=== PATIENT | male | born 1945 | race Caucasian/White ===

== ENCOUNTER 2020-03-26 18:46 | Inpatient (IN) | payer MEDICARE, OTHER, SELFPAY ==
[2020-03-26 19:30] VITALS: BP 115/77; PULSE 57; RESP 12; TEMP 36.3; O2SAT 95; BMI 28.1
--- NOTE | 2020-03-26 19:53 | CTR_ITS ---
PROCEDURE INFORMATION: Exam: CT Head Without Contrast Exam date and time: 03/26/2020 8:18 PM Age: 74 years old Clinical indication: Injury or trauma; Fall; Blunt trauma (contusions or hematomas); Patient HX: Trampled by a cow. Multiple bruises and abrasions to head and face. C/O of chest and rib pain. History of old rib fracture. TECHNIQUE: Imaging protocol: Computed tomography of the head without contrast. Radiation optimization: All CT scans at this facility use at least one of these dose optimization techniques: automated exposure control; mA and/or kV adjustment per patient size (includes targeted exams where dose is matched to clinical indication); or iterative reconstruction. COMPARISON: No relevant prior studies available. RADIATION DOSE METRICS: Total DLP (mGy-cm): 866.42 FINDINGS: Brain: Mild parenchymal volume loss noted. There is decreased attenuation of the periventricular white matter, consistent with mild chronic microangiopathic white matter disease. No intracranial hemorrhage noted. No parenchymal edema identified. Cerebral ventricles: No ventriculomegaly. Bones/joints: Unremarkable. No acute fracture. Paranasal sinuses: Visualized sinuses are unremarkable. No fluid levels. Mastoid air cells: Unremarkable as visualized. No mastoid effusion. Soft tissues: Bilateral frontal soft tissue swelling, left worse than right. CT/CT head wo con* [id number] IMPRESSION: 1. No acute intracranial abnormality demonstrated. 2. Bilateral frontal soft tissue swelling, left worse than right. No associated fracture. Radiation Dose CTDIVOL = (mGy): DLP = 866.42 (mGy-cm)
--- NOTE | 2020-03-26 19:53 | CTR_ITS ---
PROCEDURE INFORMATION: Exam: CT Maxillofacial Without Contrast Exam date and time: 03/26/2020 8:18 PM Age: 74 years old Clinical indication: Injury or trauma; Fall; Blunt trauma (contusions or hematomas); Forehead and nose and orbit/periorbital; Bilateral; Prior surgery; Surgery type: Mandible; Patient HX: Trampled by a cow. Multiple bruises and abrasions to head and face. C/O of chest and rib pain. History of old rib fracture. ; Additional info: Cow hoof to face. TECHNIQUE: Imaging protocol: Computed tomography images of the face without contrast. Radiation optimization: All CT scans at this facility use at least one of these dose optimization techniques: automated exposure control; mA and/or kV adjustment per patient size (includes targeted exams where dose is matched to clinical indication); or iterative reconstruction. COMPARISON: No relevant prior studies available. RADIATION DOSE METRICS: Total DLP (mGy-cm): 724.12 FINDINGS: Orbital cavity: The orbits are intact. Bones/joints: Postop change of the right side of the mandible. The nasal bones appear intact. The zygomatic arches are intact. The mandible is intact. No fracture of the pterygoid plates. Paranasal sinuses: No air-fluid levels are seen in the paranasal sinuses. Soft tissues: Soft tissue edema seen in the left periorbital/left pre maxillary areas. Mild right frontal scalp laceration. CT/CT facial bones wo con* [id number] IMPRESSION: 1. Soft tissue edema seen in the left periorbital/left pre maxillary areas. Mild right frontal scalp laceration. 2. No acute fracture demonstrated. Radiation Dose CTDIVOL = (mGy): DLP = 724.12 (mGy-cm)
--- NOTE | 2020-03-26 19:53 | XRR_ITS ---
PROCEDURE INFORMATION: Exam: XR Right Femur Exam date and time: 03/26/2020 8:29 PM Age: 74 years old Clinical indication: Injury or trauma; Fall; Blunt trauma; Thigh or upper leg; Right; Injury date: 03/26/20; Patient HX: Trauma - R leg pain - attacked by cow TECHNIQUE: Imaging protocol: XR Right femur. Views: 2 views. COMPARISON: No relevant prior studies available. FINDINGS: Bones/joints: No fracture or other acute osseous abnormality. Soft tissues: The soft tissues appear unremarkable. XR/XR femur RT min 2V* [id number] IMPRESSION: No acute fracture demonstrated.
--- NOTE | 2020-03-26 19:53 | CTR_ITS ---
PROCEDURE INFORMATION: Exam: CT Chest With Contrast; Diagnostic Exam date and time: 03/26/2020 8:18 PM Age: 74 years old Clinical indication: Injury or trauma; Fall; Generalized; Blunt trauma (contusions or hematomas); Prior surgery; Surgery type: Cabg. ; Patient HX: Trampled by a cow. Multiple bruises and abrasions to head and face. C/O of chest and rib pain. History of old rib fracture. ; Additional info: Multiple blunt trauma. Aorta? TECHNIQUE: Imaging protocol: Diagnostic computed tomography of the chest with contrast. Radiation optimization: All CT scans at this facility use at least one of these dose optimization techniques: automated exposure control; mA and/or kV adjustment per patient size (includes targeted exams where dose is matched to clinical indication); or iterative reconstruction. Contrast material: VISI 320; Contrast volume: 75 ml; Contrast route: INTRAVENOUS (IV); COMPARISON: No relevant prior studies available. RADIATION DOSE METRICS: Total DLP (mGy-cm): 1500.05 FINDINGS: Lungs: Mild dependent atelectasis in the lungs. Additional atelectasis noted adjacent to the right rib fractures. Pleural spaces: Trace right pleural effusion/hemothorax. 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 No cardiomegaly demonstrated. No pericardial effusion. Aorta: Aneurysmal dilatation of the ascending aorta which measures 4.0 cm in transverse diameter. Mild atherosclerosis of the aorta. No acute injury. Lymph nodes: No pathologically enlarged lymph nodes are demonstrated. Bones/joints: Median sternotomy noted. Acute fractures of the right 3rd through 8th ribs. Postop change of the bilateral shoulders. Acute nondisplaced fractures of the left anterolateral 4th and 5th ribs. Soft tissues: The soft tissues appear unremarkable. IMPRESSION: 1. Acute fractures of the right 3rd through 8th ribs. No associated right pneumothorax. Trace right hemothorax. 2. Acute nondisplaced fractures of the left anterolateral 4th and 5th ribs. No associated pneumothorax. 3. Mild bilateral atelectasis. No acute infiltrates. PROCEDURE INFORMATION: Exam: CT Abdomen And Pelvis With Contrast Exam date and time: 03/26/2020 8:18 PM Age: 74 years old Clinical indication: Injury or trauma; Fall; Generalized; Blunt trauma (contusions or hematomas); Prior surgery; Surgery type: Cabg. ; Patient HX: Trampled by a cow. Multiple bruises and abrasions to head and face. C/O of chest and rib pain. History of old rib fracture. ; Additional info: Multiple blunt trauma. Aorta? TECHNIQUE: Imaging protocol: Computed tomography of the abdomen and pelvis with contrast. Radiation optimization: All CT scans at this facility use at least one of these dose optimization techniques: automated exposure control; mA and/or kV adjustment per patient size (includes targeted exams where dose is matched to clinical indication); or iterative reconstruction. Contrast material: VISI 320; Contrast volume: 75 ml; Contrast route: INTRAVENOUS (IV); COMPARISON: No relevant prior studies available. RADIATION DOSE METRICS: Total DLP (mGy-cm): 60883.05 FINDINGS: Lungs: Please see accompanying CT chest report from same date. Liver: 3 mm cyst in the inferior portion of the liver. No acute liver injury. Gallbladder and bile ducts: Multiple gallstones in the gallbladder. No cholecystitis. No biliary dilatation. Pancreas: The pancreas is normal in appearance. No pancreatic duct dilatation. Spleen: Calcified granulomas are noted in the spleen. Adrenal glands: The adrenal glands appear within normal limits. Kidneys and ureters: Parapelvic renal cysts. Simple appearing 2 cm left cortical cyst. No acute renal injury. No hydronephrosis. Stomach and bowel: No acute gastric abnormality demonstrated. The small bowel is unremarkable as demonstrated. Diverticulosis of the colon; no acute diverticulitis. Appendix: No evidence of appendicitis. Intraperitoneal space: No free air. No significant fluid collection. Vasculature: Atherosclerosis of the abdominal aorta which measures up to 2.3 cm in diameter. No acute abnormality. Lymph nodes: No pathologically enlarged lymph nodes are demonstrated. Urinary bladder: The urinary bladder is unremarkable in appearance. Reproductive: No acute abnormality. Bones/joints: Bilateral L5 spondylolysis, associated with grade 1 L5-S1 spondylolisthesis and advanced L5-S1 disc degeneration. Soft tissues: The soft tissues appear unremarkable. CT/CT chest abd pel w con* IMPRESSION: 1. Diverticulosis of the colon; no acute bowel abnormality. 2. No acute abnormality demonstrated of the solid organs. 3. No acute abnormality demonstrated in the abdomen and pelvis. COMMENTS: Consistent with the [employer]'s Incidental Findings Committee white paper (J Am Ranulfo Radiol 2018): Any incidental renal lesion less than 1 cm or classified as too small to characterize, or any incidental cystic renal lesion characterized as simple-appearing, is likely benign. No follow-up imaging is recommended for these lesions per consensus recommendations based on imaging criteria. Radiation Dose CTDIVOL = (mGy): DLP = 1500.05~47555.05 (mGy-cm)
--- NOTE | 2020-03-26 19:53 | XRR_ITS ---
PROCEDURE INFORMATION: Exam: XR Right Knee Exam date and time: 03/26/2020 8:29 PM Age: 74 years old Clinical indication: Knee; Right; Prior surgery; Patient HX: Trauma - R leg pain - attacked by cow; Additional info: Fall TECHNIQUE: Imaging protocol: XR Right knee. Views: 3 views. COMPARISON: No relevant prior studies available. FINDINGS: Bones/joints: No joint narrowing, dislocation, or effusion noted. No fracture or other acute osseous abnormality. Soft tissues: Surgical clips in the medial soft tissues. XR/XR knee RT 3V* [id number] IMPRESSION: No acute abnormality demonstrated.
--- NOTE | 2020-03-26 19:53 | CTR_ITS ---
PROCEDURE INFORMATION: Exam: CT Cervical Spine Without Contrast Exam date and time: 03/26/2020 8:18 PM Age: 74 years old Clinical indication: Injury or trauma; Fall; Blunt trauma; Patient HX: Trampled by a cow. Multiple bruises and abrasions to head and face. C/O of chest and rib pain. History of old rib fracture. TECHNIQUE: Imaging protocol: Computed tomography images of the cervical spine without contrast. Radiation optimization: All CT scans at this facility use at least one of these dose optimization techniques: automated exposure control; mA and/or kV adjustment per patient size (includes targeted exams where dose is matched to clinical indication); or iterative reconstruction. COMPARISON: No relevant prior studies available. RADIATION DOSE METRICS: Total DLP (mGy-cm): 671.12 FINDINGS: Vertebrae: No acute fracture. Normal alignment. The cervical spine demonstrates moderate degenerative changes at multiple levels. Soft tissues: Unremarkable. Lungs: Lung apices are normal. CT/CT cervical spin wo con* [id number] IMPRESSION: No acute findings. Radiation Dose CTDIVOL = (mGy): DLP = 671.12 (mGy-cm)
--- NOTE | 2020-03-26 20:14 | ECG_ITS ---
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 Measurements Intervals [place] Rate: 66 P: 27 AK: 188 QRS: 24 QRSD: 86 T: 84 QT: 388 QTc: 406 Interpretive Statements SINUS RHYTHM NONSPECIFIC T-WAVE ABNORMALITY No previous ECG available for comparison Electronically Signed On 03-27-2020 19:21:17 CHEMIST PROTEINS by Brad Dudley M.D. [id number]
[2020-03-26] MEDS: sodium chloride 0.9% 1,000 ML 999 ML IV (20:47)
[2020-03-26] MEDS: morphine 4 mg/mL SDV 1 mL 2 MG IVP (20:47)
[2020-03-26 20:57] LABS: Basophils # 0.1 10^3/uL (0.0-0.1); Basophils % 0.3 %; Eosinophils # 0.1 10^3/uL (0.0-0.8); Eosinophils % 0.2 %; Hemoglobin 14.8 g/dL (11.7-16.6); Lymphocytes # 1.3 10^3/uL (0.8-4.8); Lymphocytes % 6.2 %; Mean Corpuscular HGB Conc 32.9 g/dL (30.0-36.0); Mean Corpuscular Hemoglobin 30.4 pg (28.0-34.0); Mean Corpuscular Volume 92.4 fL (80-94); Mean Platelet Volume 10.8 fL (7.4-10.4); Monocytes # 0.9 10^3/uL (0.2-0.9); Monocytes % 4.5 %; Neutrophils # 18.12 10^3/uL (1.8-7.7); Neutrophils % 88.2 %; Nucleated Red Blood Cells % 0 %; Platelet Count 290 10^3/cmm (130-400); Red Blood Count 4.87 10^6/uL (4.1-5.3); Red Cell Distribution Width 13.4 % (12.1-15.1); White Blood Count 20.6 10^3/uL (4.0-10.0)
--- NOTE | 2020-03-26 21:04 | CTR_ITS ---
PROCEDURE INFORMATION: Exam: CT Angiography Head With Contrast Exam date and time: 03/26/2020 9:08 PM Age: 74 years old Clinical indication: Injury or trauma; Fall; Blunt trauma; Head and neck; Prior surgery; Surgery type: Cabg; Patient HX: Trampled by a cow. Multiple bruises and abrasions to head and face. C/O of chest and rib pain. History of old rib fracture. ; Additional info: Head/neck trauma TECHNIQUE: Imaging protocol: Computed tomography angiography of the head with intravenous contrast. 3D rendering (Not supervised by radiologist): MIP and/or 3D reconstructed images were created by the technologist. Radiation optimization: All CT scans at this facility use at least one of these dose optimization techniques: automated exposure control; mA and/or kV adjustment per patient size (includes targeted exams where dose is matched to clinical indication); or iterative reconstruction. Contrast material: VISI 320; Contrast volume: 75 ml; Contrast route: INTRAVENOUS (IV); COMPARISON: CT head wo con* [id number] 03/26/2020 9:29 PM RADIATION DOSE METRICS: Total DLP (mGy-cm): 2287.56 FINDINGS: ANTERIOR CIRCULATION: Right internal carotid artery: Unremarkable. Intracranial segment is patent with no significant stenosis. No aneurysm. Right middle cerebral artery: Unremarkable. No occlusion or significant stenosis. No aneurysm. Right anterior cerebral artery: Unremarkable. No occlusion or significant stenosis. No aneurysm. Left internal carotid artery: Unremarkable. Intracranial segment is patent with no significant stenosis. No aneurysm. Left middle cerebral artery: Unremarkable. No occlusion or significant stenosis. No aneurysm. Left anterior cerebral artery: Unremarkable. No occlusion or significant stenosis. No aneurysm. POSTERIOR CIRCULATION: Right vertebral artery: Unremarkable. No occlusion or significant stenosis. No aneurysm. Left vertebral artery: Unremarkable. No occlusion or significant stenosis. No aneurysm. Basilar artery: Unremarkable CT angiogram head. No intracranial arterial abnormality. Right posterior cerebral artery: Unremarkable. No occlusion or significant stenosis. No aneurysm. Left posterior cerebral artery: Unremarkable. No occlusion or significant stenosis. No aneurysm. Brain: No definite mass, mass effect, or midline shift. Cerebral ventricles: No ventriculomegaly. Bones/joints: Unremarkable. No acute fracture. Soft tissues: Small right frontal scalp hematoma. Other findings: The impression: IMPRESSION: PROCEDURE INFORMATION: Exam: CT Angiography Neck With Contrast Exam date and time: 03/26/2020 9:08 PM Age: 74 years old Clinical indication: Injury or trauma; Fall; Blunt trauma; Head and neck; Prior surgery; Surgery type: Cabg; Patient HX: Trampled by a cow. Multiple bruises and abrasions to head and face. C/O of chest and rib pain. History of old rib fracture. ; Additional info: Head/neck trauma TECHNIQUE: Imaging protocol: Computed tomography angiography of the neck with intravenous contrast. 3D rendering (Not supervised by radiologist): MIP and/or 3D reconstructed images were created by the technologist. Radiation optimization: All CT scans at this facility use at least one of these dose optimization techniques: automated exposure control; mA and/or kV adjustment per patient size (includes targeted exams where dose is matched to clinical indication); or iterative reconstruction. Contrast material: VISI 320; Contrast volume: 75 ml; Contrast route: INTRAVENOUS (IV); COMPARISON: CT head wo con* [id number] 03/26/2020 9:29 PM RADIATION DOSE METRICS: Total DLP (mGy-cm): 2287.56 FINDINGS: Right common carotid artery: No stenosis. No dissection or occlusion. Right internal carotid artery: No stenosis of the extracranial segment. No dissection or occlusion. Right external carotid artery: No occlusion or stenosis of the origin. Right vertebral artery: No stenosis. No dissection or occlusion. Left common carotid artery: No stenosis. No dissection or occlusion. Left internal carotid artery: No stenosis of the extracranial segment. No dissection or occlusion. Left external carotid artery: No occlusion or stenosis of the origin. Left vertebral artery: No stenosis. No dissection or occlusion. Bones/joints: No cervical spine fracture. Cervical spine alignment unremarkable. Moderate spondyloarthropathy. Displaced fractures in the posterior aspect of right 3rd and 4th ribs, incompletely assessed. Soft tissues: Normal. No significant soft tissue swelling. Lungs: Moderate emphysema. CT/CT angio headneck* [id number] IMPRESSION: 1. Unremarkable CT angiogram neck. No acute arterial injury. No significant underlying atherosclerotic disease. 2. Overlapping, displaced fracture in the posterior aspect of the right-side 3rd and 4th ribs which are incompletely assessed by this examination. REFERENCES: NASCET CRITERIA. The degree of internal carotid artery stenosis is based on NASCET criteria. Normal is no stenosis. Mild is less than 50% stenosis. Moderate is 50-69% stenosis. Severe is 70% to 99% stenosis. Total occlusion is no detectable patent lumen. Radiation Dose CTDIVOL = (mGy): DLP = 2287.56~2287.56 (mGy-cm)
[2020-03-26 21:05] LABS: INR 1.12 (0.8-1.2)
[2020-03-26 21:11] LABS: Lactate (Lactic Acid level) 2.1 mmol/L (0.5-2.2)
[2020-03-26 21:14] LABS: Alanine Aminotransferase 48 U/L (0-41); Albumin Level 4.4 g/dL (3.5-5.2); Alkaline Phosphatase 72 IU/L (40-130); Anion Gap 18.1 (5-19); Aspartate Amino Transferase 58 U/L (0-40); Blood Urea Nitrogen 17 mg/dL (8-23); Calcium 9.4 mg/dL (8.5-10.5); Carbon Dioxide 22 mmol/L (22-29); Chloride 101 mmol/L (98-107); Glucose 129 mg/dL (65-115); Osmolality Calculated 285 mOsm/kg (285-295); Potassium 5.1 mmol/L (3.5-5.1); Sodium 136 mmol/L (136-145); Total Bilirubin 0.7 mg/dL (0.15-1.2); Total Protein 7.4 g/dL (6.6-8.7)
[2020-03-26 21:15] LABS: Troponin(5th) Baseline 22 ng/L (0-15)
[2020-03-26] MEDS: iodixanol 320 mg/mL 100mL Btl IV ×2 (21:18)
--- NOTE | 2020-03-26 22:14 | ECG_ITS ---
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 Measurements Intervals [place] Rate: 71 P: 21 MI: 176 QRS: 24 QRSD: 94 T: 79 QT: 403 QTc: 440 Interpretive Statements SINUS RHYTHM NONSPECIFIC T-WAVE ABNORMALITY Compared to ECG 03/26/2020 20:40:20 No significant changes Electronically Signed On 03-27-2020 19:35:45 PROGRAMMING COORDINATOR by Brad Dudley M.D. [email or web address] [place]/store/OM/[id number]
[2020-03-26] MEDS: HYDROmorphone 1 mg/mL INJ 1 mL 0.5 MG IVP (22:22)
[2020-03-26 22:43] VITALS: BP 122/75; PULSE 70; RESP 17; O2SAT 95
[2020-03-26] MEDS: lidocaine 1% INJ 20 mL SUBCUT (22:45)
[2020-03-26 22:47] VITALS: BP 122/75; PULSE 75; RESP 18; O2SAT 95
--- NOTE | 2020-03-26 23:15 | ED_ITS ---
HPI - Trauma General: Chief Complaint: Trauma Stated Complaint: PT VS COW/FACIAL INJURIES, R LEG PAIN, RIB PAIN Time Seen by Provider: 03/26/20 19:48 History of Present Illness: HPI narrative: The patient is a 74-year-old male who was attacked by the mother of a calf while trying to tack the calf. He was knocked to the ground and stomped on by the cow several time. He has facial, head, rib injuries. He takes baby aspirin but no blood thinners. He also c omplains of right thigh pain posteriorly. He complains of pain with respirations. Satting 100% on room air. MD complaint: injury Loss of Consciousness: no Location: head, face, eyes, neck, chest, back, abdomen and other (Right thigh) Associated symptoms: Reports headache(s); Denies abdominal pain, back pain, chest pain, confusion or dizziness Review of Systems General: Reports: 10 or more systems reviewed and unremarkable except in HPI and below Const: Denies: fatigue Eyes: Reports: other (Black eye to the left side); Denies: change in vision, blurry vision or eye redness ENMT: Denies: throat pain, swelling of lips/tongue, ear or mastoid pain or nasal congestion Card: Denies: chest pain, palpitations, irregular heart rhythm, edema, dyspnea on exertion or orthopnea Resp: Reports: other (Tenderness to the chest wall bilaterally); Denies: dyspnea, productive cough or non-productive cough GI: Denies: abdominal pain, diarrhea or GI cramping : Denies: flank pain, urinary frequency or urinary urgency Musc: Denies: neck pain, back pain, extremity pain, joint pain, joint redness, limited range of motion or muscle weakness Skin/Breast: Reports: other (Laceration to left eyebrow extending to the lateral corner of the eye); Denies: rash, pruritus, erythema, skin pain or skin tenderness Neuro: Reports: headache(s); Denies: numbness in extremities, weakness in extremities, sensory changes, difficulty walking, dizziness, confusion or Slurred speech present Psych: Denies: anxiety or depression Endo: Denies: polyuria All/Imm: Denies: urticaria, throat swelling or tongue swelling Physical Exam Const: COMMON NORMALS: average body habitus, patient oriented x3, alert and well nourished GENERAL APPEARANCE: cooperative, well kempt, well developed and ill appearing ORIENTATION/CONSCIOUSNESS: Yes awake, Yes oriented to person, Yes oriented to place and Yes oriented to time HENMT: THROAT: posterior oropharynx normal OTHER: The patient has a black eye to the left side and a irregular Z shaped laceration to his left eyebrow and eyelid and lateral to his eye. That was repaired using 7 sutures with 1% lidocaine. The patient tolerated well. He has associated bony tenderness bilaterally over his forehead and eyebrows as well as his orbits. His vision is unaffected he is able to read fine print bilaterally with opposite eye covered. His right ear has an abrasion on the auricle. It has blood coming from his ear canal as well but inspection of the tympanic membrane is normal. There is no laceration in his ear canal. Most likely the blood flowed into his ear not from his ear. Eye: COMMON NORMALS: Equal, round and reactive pupils present and EOMs intact bilaterally GENERAL EYE: appearance normal, both eyes and all related structures PUPIL: Yes Equal, round and reactive pupils present Neck/C-Spine: COMMON NORMALS: full ROM, no lymphadenopathy, no meningeal signs and no JVD GENERAL: Yes normal visual inspection OTHER: Perimuscular cervical spinal tenderness. No step-offs. Lymph: LYMPHATIC: no lymphadenopathy noted Chest: COMMONS NORMALS: normal inspection of the chest OTHER: Bilateral rib tenderness laterally throughout the chest wall. He has some anterior chest wall tenderness as well. Resp: COMMON NORMALS: normal respiratory effort, No retractions, No use of accessory muscles, clear to auscultation bilaterally and percussion normal EFFORT & INSPECTION: Yes able to speak in complete sentences AUSCULTATION: clear to auscultation bilaterally PERCUSSION: percussion normal OTHER: Breath sounds are slightly reduced from pain. But clear. Cardio: COMMON NORMALS: no JVD, regular rate, regular rhythm, S1 normal heart sound present, S2 normal heart sound present and Peripheral pulses 2+ throughout RATE: regular rate RHYTHM: regular rhythm HEART SOUNDS: S1 normal heart sound present and S2 normal heart sound present PERIPHERAL PULSES: Peripheral pulses 2+ throughout GI: COMMON NORMALS: Soft to palpation PALPATION: Yes Soft to palpation OTHER: His abdomen is soft. He has mild tenderness in all quadrants and small read/bruises mostly in the upper abdomen. : COMMON NORMALS: Yes no CVA tenderness BLADDER/KIDNEY EXAM: Yes no CVA tenderness Back/Pelvis: COMMON NORMALS: no CVA tenderness, thoracic and lumbar spine normal to inspection, no thoracic nor lumbar tenderness and thoraco-lumbar ROM normal Extremity: COMMON NORMALS: normal to inspection, full ROM, capillary refill normal, no joint enlargement and no pedal edema NARRATIVE EXTREMITY EXAM: Right posterior thigh bruise and hematoma. Associated tenderness. Full range of motion. Ligaments intact. GENERAL: Yes normal exam except as noted Neuro: COMMON NORMALS: patient oriented x3, CN's II-XII intact bilaterally, moves all extremities, no focal motor deficits, no sensory deficits noted and gait normal SENSORIUM/ORIENTATION: Yes alert, Yes oriented to person, Yes oriented to place and Yes oriented to time MENINGEAL SIGNS: Yes no meningeal signs Psych: COMMON NORMALS: mental status grossly normal, Normal thought process present, cooperative, normal affect and speech normal APPEARANCE: Yes well kempt ATTITUDE: Yes calm SPEECH: Yes normal speech THOUGHT PROCESS: Normal thought process present Skin: COMMON NORMALS: no rashes or lesions noted NARRATIVE SKIN EXAM: Bruises and abrasions scattered throughout his body listed above. Worst are his head, face, ears, chest, belly GENERAL SKIN EXAM: no rashes or lesions noted Procedures Laceration Laceration 1: Site: face (left eye) Side (If applicable): left Size (cm): 6 Description: irregular ( Z shaped) Depth: simple, single layer Local Anesthetic: lidocaine 1% Amount of anesthesia used (mL): 3 Pre-repair: wound explored and irrigated extensively Skin layer closed with: other (ethilon) Size (cm): 5-0 Number of sutures: 7 Technique: simple, interrupted MDM - Trauma MDM Narrative: Medical decision making narrative: The patient came in severely beaten from a cow. He has a laceration to his left eyebrow which was repaired with 7 sutures. Remove in 7 to 10 days. He has a left black eye. There are no associated fractures with that. His most significant injuries are he has 8 rib fractures. On the right side he has 6 overlapping rib fractures ribs 3 through 8. On the left side he has fractured ribs 4 [address] Shipley who accepts as an inpatient and he is the primary. Dr. Dillard will consult upstairs Lab Data: Labs: Lab Results 02/02/0103/26/20 03/26/20 Range/Units 20:44 20:44 20:44 WBC 20.6 H (4.0-10.0) 10^3/ uL RBC 4.87 (4.1-5.3) 10^6/u L Hgb 14.8 (11.7-16.6) g/dL Hct 45.0 (42.0-52.0) % MCV 92.4 (80-94) fL MCH 30.4 (28.0-34.0) pg MCHC 32.9 (30.0-36.0) g/dL RDW 13.4 (12.1-15.1) % Plt Count 290 (130-400) 10^3/c mm MPV 10.8 H (7.4-10.4) fL Neut % (Auto) 88.2 % Lymph % (Auto) 6.2 % Harris % (Auto) 4.5 % Eos % (Auto) 0.2 % Baso % (Auto) 0.3 % Neut # (Auto) 18.12 H (1.8-7.7) 10^3/u L Lymph # (Auto) 1.3 (0.8-4.8) 10^3/u L Harris # (Auto) 0.9 (0.2-0.9) 10^3/u L Eos # (Auto) 0.1 (0.0-0.8) 10^3/u L Baso # (Auto) 0.1 (0.0-0.1) 10^3/u L Nucleated RBC % (a uto) 0 % Nucleated RBCs # 0.0 /100WBC PT 14.80 (12.1-14.9) SECO NDS INR 1.12 (0.8-1.2) Sodium 136 (136-145) mmol/L Potassium 5.1 (3.5-5.1) mmol/L Chloride 101 (98-107) mmol/L Carbon Dioxide 22 (22-29) mmol/L Anion Gap 18.1 (5-19) BUN 17 (8-23) mg/dL Creatinine 1.2 (0.7-1.2) mg/dL GFR Calculation Not Reportable Glucose 129 H (65-115) mg/dL Calculated Osmolal ity 285 (285-295) mOsm/k g Lactate (0.5-2.2) mmol/L Calcium 9.4 (8.5-10.5) mg/dL Total Bilirubin 0.7 (0.15-1.2) mg/dL AST 58 H (0-40) U/L ALT 48 H (0-41) U/L Alkaline Phosphata se 72 (40-130) IU/L Troponin T Baselin e (0-15) ng/L Total Protein 7.4 (6.6-8.7) g/dL Albumin 4.4 (3.5-5.2) g/dL Globulin 3.0 (1.3-4.6) g/dL 03/26/20 03/26/20 Range/Units 20:44 20:44 WBC (4.0-10.0) 10^3/ uL RBC (4.1-5.3) 10^6/u L Hgb (11.7-16.6) g/dL Hct (42.0-52.0) % MCV (80-94) fL MCH (28.0-34.0) pg MCHC (30.0-36.0) g/dL RDW (12.1-15.1) % Plt Count (130-400) 10^3/c mm MPV (7.4-10.4) fL Neut % (Auto) % Lymph % (Auto) % Harris % (Auto) % Eos % (Auto) % Baso % (Auto) % Neut # (Auto) (1.8-7.7) 10^3/u L Lymph # (Auto) (0.8-4.8) 10^3/u L Harris # (Auto) (0.2-0.9) 10^3/u L Eos # (Auto) (0.0-0.8) 10^3/u L Baso # (Auto) (0.0-0.1) 10^3/u L Nucleated RBC % (a uto) % Nucleated RBCs # /100WBC PT (12.1-14.9) SECO NDS INR (0.8-1.2) Sodium (136-145) mmol/L Potassium (3.5-5.1) mmol/L Chloride (98-107) mmol/L Carbon Dioxide (22-29) mmol/L Anion Gap (5-19) BUN (8-23) mg/dL Creatinine (0.7-1.2) mg/dL GFR Calculation Glucose (65-115) mg/dL Calculated Osmolal ity (285-295) mOsm/k g Lactate 2.1 (0.5-2.2) mmol/L Calcium (8.5-10.5) mg/dL Total Bilirubin (0.15-1.2) mg/dL AST (0-40) U/L ALT (0-41) U/L Alkaline Phosphata se (40-130) IU/L Troponin T Baselin e 22 H (0-15) ng/L Total Protein (6.6-8.7) g/dL Albumin (3.5-5.2) g/dL Globulin (1.3-4.6) g/dL Discharge Plan Discharge Patient Disposition: Admitted As Inpatient Clinical Impression: Contusion of head, Contusion of multiple sites Multiple fractures of ribs Qualifiers: Encounter type: initial encounter Fracture type: closed Laterality: bilateral Qualified Code(s): S22.43XA - Multiple fractures of ribs, bilateral, initial encounter for closed fracture Condition: Stable Coding Level of Care Code ED [employer]
--- NOTE | 2020-03-26 23:22 | PC.NURSE ---
EKG done at 2320 and shown to ER doctor
[2020-03-26 23:47] VITALS: BP 106/72; PULSE 72; RESP 18; O2SAT 95
[2020-03-27] VITALS (15 sets, daily range): BP systolic 101–116; BP diastolic 59–74; PULSE 61–85; RESP 14–20; TEMP 36.5–37.4; O2SAT 93–97
[2020-03-27] MEDS: tetanus-dipt-pertussis 0.5 mL SDV IM
[2020-03-27 00:01] LABS: Troponin 5 2HR 20.02 ng/L (0-15)
[2020-03-27 00:05] LABS: Troponin 5 2HR Delta -1.98 ABS# (0-10)
[2020-03-27 00:06] LABS: Creatine Phosphokinase 614 U/L (39-308)
--- NOTE | 2020-03-27 02:14 | ECG_ITS ---
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 [id number]
[2020-03-27] MEDS: HYDROmorphone 1 mg/mL INJ 1 mL 0.5 MG IVP ×3 (03:53→15:41)
[2020-03-27 07:39] LABS: Troponin 5 6HR 26.43 ng/L (0-15)
--- NOTE | 2020-03-27 07:50 | PM.CONSULT ---
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 He sustained several injuries including to his face, chest and legs. In the emergency room he had sutures placed to the pleural area. He was found to have bilateral rib fractures, 6 on the right and 2 on the left. He also had extensive bruising noted to right posterior thigh and some other abrasions. ER physician discussed the case with on-call surgery. Hospitalist were also contacted. Given the traumatic nature of injuries, patient is being admitted to surgical service and hospitalist have been asked to for consultation. He has a history of hypertension, hyperlipidemia, prior bypass surgery among other diagnoses listed. Pain was not well controlled with morphine in the emergency room but it is improved with Dilaudid. He has never had anything quite like this happen before. If he is still his pain is all right. Last dose of Dilaudid was several hours ago and pain is mild if he is not moving around. Denies significant shortness of breath. Prior to sustaining injuries, he was not having any issues with chest pain, difficulty breathing, fevers, GI symptoms, urinary difficulties. 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 Review of Systems Const: Denies: fever(s) or chills Eyes: Reports: other (Reports normal range of motion though pain with movement); Denies: change in vision or blurry vision ENMT: Reports: nasal congestion and other (Facial pain and swelling); Denies: oral sores Card: Reports: chest pain (Related to multiple rib fractures, none prior to cow attack) and dyspnea on exertion; Denies: palpitations or edema Resp: Reports: dyspnea (If moves around too much) and pain on inspiration; Denies: productive cough, non-productive cough or hemoptysis GI: Denies: nausea, vomiting, diarrhea or constipation : Denies: difficulty urinating or hematuria Musc: Reports: extremity pain (Right upper thigh, left lower leg) Skin/Breast: Reports: other (Multiple new findings related to cow attack) Neuro: Reports: headache(s); Denies: numbness in extremities, weakness in extremities or dizziness Psych: Denies: anxiety or depression Darian/Lymph: Denies: easy bruising or easy bleeding Meds/Allergies Home Medications and Allergies Home Medications Medication Instructions Recorded Confirmed Last Taken Type Vitamin D3 1 tab PO DAILY@0700 03/26/20 03/26/20 03/26/20 History aspirin [Aspir-81] 81 mg PO DAILY@219903/26/20 03/26/20 03/25/20 History carvedilol 3.125 mg PO BID@0700,219903/26/20 03/26/20 03/26/20 History latanoprost See Rx Instructions .ROUTE .COMPLEX 03/26/20 03/26/20 03/25/20 History levothyroxine 75 mcg PO DAILY@0 03/26/20 03/26/20 03/26/20 History rosuvastatin 20 mg PO DAILY@219903/26/20 03/26/20 03/25/20 History timolol maleate 1 drp OPHTHALMIC (EYE) 03/26/20 03/26/20 03/26/20 History BID@0700,2200 Allergies Allergy/AdvReac Type Severity Reaction Status Date / Time No Known Allergies Allergy Verified 03/26/20 19:37 Current Medications Current Medications Generic Name Dose Route Start Last Admin Trade Name Freq PRN Reason Stop Dose Admin Hydromorphone HCl 0.5 mg 03/27/20 00:55 03/27/20 03:53 Hydromorphone 1 Mg/Ml Inj 1 Ml IVP 0.5 mg Q6H PRN Administration Severe pain PFSH Acute PFSH: Medical History (Updated 03/27/20 @ 08:48 by Megan Dillard MD) CAD (coronary artery disease) Glaucoma Hyperlipidemia Hypertension Hypothyroidism Vitamin D deficiency Surgical History (Updated 03/27/20 @ 08:01 by Megan Dillard MD) History of appendectomy History of bowel resection due to obstruction, done in [place] many years ago History of coronary artery bypass graft (~2010) History of transurethral resection of prostate Family History (Updated 03/27/20 @ 08:03 by Megan Dillard MD) Mother Stroke Social History (Updated 03/27/20 @ 08:02 by Megan Dillard MD) Smoking and tobacco status: former smoker Alcohol intake: current Alcohol intake frequency: 0-2 Drinks per Day Substance/Drug Use: never Household members: spouse Marital status: Vitals/I&O/Wt Last Vital Signs Temp 99.3 F 03/27/20 04:00 Pulse 70 03/27/20 04:00 Resp 20 H 03/27/20 04:00 BP 113/72 03/27/20 04:00 Pulse Ox 93 03/27/20 04:00 03/26/20 03/27/20 03/27/20 22:59 06:59 14:59 Intake Total 1000 / 1000 15 / 1015 Balance 1000 / 1000 15 / 1015 Weight last 48 hrs Weight 81.647 kg Physical Exam Const: OTHER: Alert, oriented x3, cooperative HENMT: OTHER: Dressing intact over left restoration area where I was informed of sutures being in place. Dried blood noted over the forehead. Facial swelling is noted bilaterally but more so on the left than on the right. There are some abrasions on the right forehead. Some dried blood at the nose. Bruising noted around the left eye. Right ear has some dried blood and scant amount of serous fluid from an area where there is a laceration on the earlobe. Oropharynx without any tongue lesions noted and no obvious acute dental trauma Eye: OTHER: Pupils are equally round and reactive to light. I do not currently see any scleral hemorrhaging. Extraocular movements are intact although there is some pain with lateral movement on the left appreciated. Eyelids are swollen more on the left than the right. Neck/C-Spine: OTHER: Supple Resp: OTHER: Clear to auscultation bilaterally although does have some splinting with attempted deep inspiration. Chest wall is tender to palpation but no crepitus is appreciated. Bruising noted. Cardio: OTHER: Regular rate and rhythm, no murmurs gallops or rubs. Equal pulses throughout GI: OTHER: Abdomen soft, nontender, nondistended with positive bowel sounds Extremity: NARRATIVE EXTREMITY EXAM: Some abrasions noted to upper extremities. On the right lower extremity posterior thigh there is an approximately 3 cm line of ecchymoses extending approximately 10 inches proximal to distal thigh that is surrounding an area about 5 inches in diameter that is not covered in bruising but is edematous and soft/fluctuant. Area is tender to palpation with touching. There is an abrasion to the left anterior read in a hoof shape that is also tender to palpation and has some very faint bruising noted. Neuro: OTHER: Smile is symmetric, speech is clear, handgrip is equal, moves both feet, no abnormal movements Psych: OTHER: Normal affect Skin: OTHER: Multiple traumatic skin abnormalities as noted in several sections above A&P Assessment and plan (1) Struck by cow, initial encounter: Status: Acute (2) Multiple fractures of ribs: 3-8 on the right and 4-5 on the left, hemothorax was noted on the right Status: Acute Qualifiers: Encounter type: initial encounter Fracture type: closed Laterality: bilateral Qualified Code(s): S22.43XA - Multiple fractures of ribs, bilateral, initial encounter for closed fracture (3) Contusion of multiple sites: Multiple facial contusions, laceration at left temporal area required suturing, laceration to right earlobe, hematoma to right posterior thigh and abrasions to left anterior read Status: Acute (4) Traumatic rhabdomyolysis: Initial CK level 600s Status: Acute Qualifiers: Encounter type: initial encounter Qualified Code(s): T79.6XXA - Traumatic ischemia of muscle, initial encounter (5) Hypertension: Chronically on carvedilol Status: Chronic Qualifiers: Hypertension type: essential hypertension Qualified Code(s): I10 - Essential (primary) hypertension (6) Hyperlipidemia: Chronically on Crestor Status: Chronic Qualifiers: Hyperlipidemia type: unspecified Qualified Code(s): E78.5 - Hyperlipidemia, unspecified (7) CAD (coronary artery disease): History of coronary artery bypass in 2010, takes daily aspirin Status: Chronic Qualifiers: Coronary Disease-Associated Artery/Lesion type: [place] artery [place] vs. transplanted heart: [place] heart Associated angina: without angina Qualified Code(s): I25.10 - Atherosclerotic heart disease of [place] coronary artery without angina pectoris (8) Hypothyroidism: Chronically on levothyroxine Status: Chronic Qualifiers: Hypothyroidism type: unspecified Qualified Code(s): E03.9 - Hypothyroidism, unspecified (9) Glaucoma: Chronically on timolol and latanoprost Status: Chronic Qualifiers: Glaucoma type: unspecified Laterality: unspecified laterality Qualified Code(s): H40.9 - Unspecified glaucoma Additional A&P Information Mild transaminase elevation Elevated baseline troponin but unremarkable 2 and 6-hour delta IV fluids for hydration H&H, CK level and electrolytes Recommend continuation of carvedilol, aspirin, levothyroxine and eyedrops Statin therapy is held secondary to rhabdomyolysis Continue current pain control with Dilaudid and oxycodone, patient with little to no relief with morphine from ED report Scheduled laxatives secondary to narcotics Incentive spirometer to bedside Nebulizer treatments if needed Received tetanus shot in the emergency room I have reordered urinalysis as did in the emergency room, patient does report needing to urinate Continuous pulse ox and telemetry monitoring at least for the first 24 hours Further management as per surgery recommendations I did order SCDs but will defer any pharmacological anticoagulation to surgery particularly pending repeat H&H this morning I did discuss with patient to let us know if he develops severe pain out of proportion to what he thinks she should have particularly in the right thigh area and to let us know if he has any difficulty with eye movements facial pain or breathing Current plans to monitor renal function and treat with IV fluids, continue pain control were discussed and Mr. Sky was given an opportunity to ask questions Full code Consult Attestations Medical Necessity Statement: As per attending physician Coding Level of Care Code Acute Pan Shaker for Chg Fwd Diagnoses Struck by cow, initial encounter W55.22XA Multiple fractures of ribs S22.43XA Encounter type: initial encounter Fracture type: closed Laterality: bilateral Contusion of multiple sites T07.XXXA Traumatic rhabdomyolysis T79.6XXA Encounter type: initial encounter Hypertension I10 Hypertension type: essential hypertension Hyperlipidemia E78.5 Hyperlipidemia type: unspecified CAD (coronary artery disease) I25.10 Coronary Disease-Associated Artery/Lesion type: [place] artery [place] vs. transplanted heart: [place] heart Associated angina: without angina Hypothyroidism E03.9 Hypothyroidism type: unspecified Glaucoma H40.9 Glaucoma type: unspecified Laterality: unspecified laterality
[2020-03-27 07:57] LABS: Basophils % 0.2 %; Hematocrit 37.3 % (42.0-52.0); Hemoglobin 12.3 g/dL (11.7-16.6); Lymphocytes # 1.1 10^3/uL (0.8-4.8); Lymphocytes % 9.1 %; Mean Corpuscular Hemoglobin 30.8 pg (28.0-34.0); Mean Corpuscular Volume 93.5 fL (80-94); Mean Platelet Volume 10.7 fL (7.4-10.4); Monocytes % 8.1 %; Neutrophils % 82.3 %; Nucleated Red Blood Cells % 0 %; Platelet Count 211 10^3/cmm (130-400); Red Blood Count 3.99 10^6/uL (4.1-5.3); Red Cell Distribution Width 13.8 % (12.1-15.1); White Blood Count 11.8 10^3/uL (4.0-10.0)
[2020-03-27 08:07] LABS: Troponin 5 6HR Delta 4.43 ng/L (0-12)
[2020-03-27 08:44] LABS: Magnesium 1.7 mg/dL (1.7-2.3); Phosphorus 3.8 mg/dL (2.5-4.5)
[2020-03-27 08:56] LABS: Creatine Phosphokinase 1044 U/L (39-308)
[2020-03-27] MEDS: docusate sodium 100 mg Capsule PO (09:06)
[2020-03-27] MEDS: sodium chloride 0.9% 1,000 ML 125 ML IV ×3 (09:06→22:49)
[2020-03-27 09:19] LABS: Alanine Aminotransferase 35 U/L (0-41); Albumin Level 3.7 g/dL (3.5-5.2); Alkaline Phosphatase 57 IU/L (40-130); Anion Gap 17.4 (5-19); Aspartate Amino Transferase 42 U/L (0-40); Blood Urea Nitrogen 18 mg/dL (8-23); Calcium 8.7 mg/dL (8.5-10.5); Carbon Dioxide 19 mmol/L (22-29); Chloride 103 mmol/L (98-107); Globulin 2.7 g/dL (1.3-4.6); Glucose 134 mg/dL (65-115); Osmolality Calculated 284 mOsm/kg (285-295); Potassium 4.4 mmol/L (3.5-5.1); Sodium 135 mmol/L (136-145); Total Bilirubin 1.2 mg/dL (0.15-1.2); Total Protein 6.4 g/dL (6.6-8.7)
--- NOTE | 2020-03-27 11:40 | P.HP_ITS ---
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 Patient had facial laceration sutured in the ER and was admitted to the floor for pain control and observation. He denies any loss of consciousness, diplopia, amnesia. He complains of generalized body ache and difficulty with lifting the right shoulder where he has right chest pain. He also has pain on his right thigh where he has a large bruise as well as left leg where they are multiple abrasions on the read. He denies any shortness of breath. No blood in urine. Review of Systems General: Reports: 10 or more systems reviewed and unremarkable except in HPI and below Medications/Allergies Home Medications Medication Instructions Recorded Confirmed Last Taken Type Vitamin D3 1 tab PO DAILY@0700 03/26/20 03/26/20 03/26/20 History aspirin [Aspir-81] 81 mg PO DAILY@2200 03/26/20 03/26/20 03/25/20 History carvedilol 3.125 mg PO BID@0700,2200 03/26/20 03/26/20 03/26/20 History latanoprost See Rx Instructions .ROUTE .COMPLEX 03/26/20 03/26/20 03/25/20 History levothyroxine 75 mcg PO DAILY@0400 03/26/20 03/26/20 03/26/20 History rosuvastatin 20 mg PO DAILY@2200 03/26/20 03/26/20 03/25/20 History timolol maleate 1 drp OPHTHALMIC (EYE) 03/26/20 03/26/20 03/26/20 History BID@0700,2200 Allergies Allergy/AdvReac Type Severity Reaction Status Date / Time No Known Allergies Allergy Verified 03/26/20 19:37 PFSH Acute PFSH: Medical History (Updated 03/27/20 @ 08:48 by Megan Dillard MD) CAD (coronary artery disease) Glaucoma Hyperlipidemia Hypertension Hypothyroidism Vitamin D deficiency Surgical History (Updated 03/27/20 @ 08:01 by Megan Dillard MD) History of appendectomy History of bowel resection due to obstruction, done in [place] many years ago History of coronary artery bypass graft (~2010) History of transurethral resection of prostate Family History (Updated 03/27/20 @ 08:03 by Megan Dillard MD) Mother Stroke Social History (Updated 03/27/20 @ 08:02 by Megan Dillard MD) Smoking and tobacco status: former smoker Alcohol intake: current Alcohol intake frequency: 0-2 Drinks per Day Substance/Drug Use: never Household members: spouse Marital status: Vitals/I&O/Wt Last Vital Signs Temp 98.8 F 03/27/20 08:00 Pulse 61 03/27/20 08:31 Resp 18 03/27/20 09:38 BP 116/72 03/27/20 08:00 Pulse Ox 97 03/27/20 09:38 03/26/20 03/27/20 03/27/20 22:59 06:59 14:59 Intake Total 1000 / 1015 15 / 1015 Balance 1000 / 1015 15 / 1015 Weight last 48 hrs Weight 180 lb Physical Exam Narrative: EXAM NARRATIVE: HEENT: Normocephalic, abrasion on the forehead, laceration below left eye which was sutured, continues to bleed, pressure dressing applied Eye: Sclera /conjunctiva normal Respiratory and chest: Bilateral clear breath sounds on auscultation, tender to palpation bilateral chest wall Cardiovascular: Normal S1 and S2 heart sounds Abdomen: Soft to palpation Neurological: Oriented to place person and time Skin: Intact, multiple abrasions to left leg, large hematoma in the posterior aspect of the right thigh. Full range of movement in all 4 extremities. no neurovascular deficit in all 4 extremities Data : 03/27/20 07:30 03/27/20 07:30 A&P Assessment and plan (1) Multiple fractures of ribs: 74-year-old male struck by a cow who is currently hemodynamically stable CT angiogram of neck: Nil acute Right knee x-ray: Nil acute Head CT: Frontal soft tissue swelling Femur fracture: Nil acute Face CT: Soft tissue edema in the left periorbital/maxillary area CT chest: Right 3-8 rib fracture, left 4-[address] abdomen pelvis: Nil acute discussed with the patient in detail about implications of bilateral rib fractures and effect on pulmonary function. Incentive spirometry Scheduled Percocet and Motrin for pain control Ambulate with physical therapy Senna docusate for bowel regimen to avoid constipation Lovenox for DVT prophylaxis Recheck labs tomorrow Medical management as per hospitalist service Status: Acute Qualifiers: Encounter type: initial encounter Fracture type: closed Laterality: bilateral Qualified Code(s): S22.43XA - Multiple fractures of ribs, bilateral, initial encounter for closed fracture (2) Traumatic rhabdomyolysis: Continue IV fluids at 125 cc/h Creatinine kinase increased from 614 to 1044 Status: Acute Qualifiers: Encounter type: initial encounter Qualified Code(s): T79.6XXA - Traumatic ischemia of muscle, initial encounter Attestations Medical Necessity Statement*: Multiple rib fractures with elevated creatinine kinase requiring 1 more night of inpatient stay Coding Level of Care Code 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
[2020-03-27] MEDS: acetaminophen 325 mg Tablet 650 MG PO (12:27)
[2020-03-27 13:14] LABS: Protein Urine Trace (Negative); Urine Appearance Cloudy (CLEAR); Urine Color Dark Yellow (Yellow); pH Urine 5 (5-7)
[2020-03-27 13:15] LABS: Add Urine Microscopic? YES; Bilirubin Urine 1+ (Negative); Blood Urine Neg (Negative); Glucose Urine UA Norm (Normal); Ketones Urine 1+ (Negative); Leukocyte Esterase Urine Negative (Negative); Nitrate Urine Negative (Negative); Urobilinogen Urine 1 mg/dL (Negative)
[2020-03-27 13:21] LABS: Add Urine Culture? No; Bacteria Urine TRACE /hpf; Mucus Urine 2+ /hpf
--- NOTE | 2020-03-27 13:26 | P.PN_ITS ---
Subjective Subjective: Interval history: This morning patient was examined, he sitting up in bed, he is in a lot of pain, but he tells me his pain medication is helping, does report pain when taking a deep breath in, his right lateral thigh particularly is hurting, alert oriented x3, no nausea, no vomiting, no headache, blurry vision, is sore all over, would like to have breakfast this morning Vitals/I&O/Wt Last Vital Signs Temp 98.0 F 03/27/20 11:55 Pulse 76 03/27/20 11:55 Resp 18 03/27/20 11:55 BP 110/74 03/27/20 11:55 Pulse Ox 95 03/27/20 11:55 03/26/20 03/27/20 03/27/20 22:59 06:59 14:59 Intake Total 1000 / 1000 15 / 1015 Balance 1000 / 1000 15 / 1015 Weight last 48 hrs Weight 81.647 kg Physical Exam Const: COMMON NORMALS: no acute distress and patient oriented x3 HENMT: COMMON NORMALS: normocephalic HEAD & SCALP: normocephalic Neck/C-Spine: COMMON NORMALS: no JVD Resp: COMMON NORMALS: normal respiratory effort, No retractions, No use of accessory muscles and clear to auscultation bilaterally AUSCULTATION: clear to auscultation bilaterally Cardio: COMMON NORMALS: no JVD, regular rate, regular rhythm, S1 normal heart sound present and S2 normal heart sound present RATE: regular rate RHYTHM: regular rhythm HEART SOUNDS: S1 normal heart sound present and S2 normal heart sound present GI: COMMON NORMALS: Normal to inspection, nondistended, normoactive bowel sounds present, Soft to palpation, non-tender, No hepatosplenomegaly present, no masses and no bruits PALPATION: Yes Soft to palpation and Yes No hepatosplenomegaly present Extremity: COMMON NORMALS: capillary refill normal, no clubbing, cyanosis or e [place], no calf tenderness and no pedal edema Neuro: COMMON NORMALS: patient oriented x3 Psych: COMMON NORMALS: mental status grossly normal Skin: NARRATIVE SKIN EXAM: Has laceration over right brow Multiple areas of bruising on the face Multiple areas of bruising over the chest Areas of bruising over the bilateral lower extremities Particular area of bruising over the right lateral thigh, that is quite deep appearing Data : 03/27/20 07:30 03/27/20 07:30 A&P Assessment and plan (1) Struck by cow, initial encounter: Status: Acute (2) Multiple fractures of ribs: 3-8 on the right and 4-5 on the left, hemothorax was noted on the right No evidence of flail chest Pain control Incentive spirometer Monitor for fevers, monitor for pneumonias Status: Acute Qualifiers: Encounter type: initial encounter Fracture type: closed Laterality: bilateral Qualified Code(s): S22.43XA - Multiple fractures of ribs, bilateral, initial encounter for closed fracture (3) Contusion of multiple sites: Multiple facial contusions, laceration at left temporal area required suturing, laceration to right earlobe, hematoma to right posterior thigh and abrasions to left anterior read Status: Acute (4) Traumatic rhabdomyolysis: Initial CK level 600s Continue IV fluids Hold statin Status: Acute Qualifiers: Encounter type: initial encounter Qualified Code(s): T79.6XXA - Traumatic ischemia of muscle, initial encounter (5) Hypertension: Chronically on carvedilol Status: Chronic Qualifiers: Hypertension type: essential hypertension Qualified Code(s): I10 - Essential (primary) hypertension (6) Hyperlipidemia: Chronically on Crestor Status: Chronic Qualifiers: Hyperlipidemia type: unspecified Qualified Code(s): E78.5 - Hyperlipidemia, unspecified (7) CAD (coronary artery disease): History of coronary artery bypass in 2010, takes daily aspirin Status: Chronic Qualifiers: Coronary Disease-Associated Artery/Lesion type: [place] artery [place] vs. transplanted heart: [place] heart Associated angina: without angina Qualified Code(s): I25.10 - Atherosclerotic heart disease of [place] coronary artery without angina pectoris (8) Hypothyroidism: Chronically on levothyroxine Status: Chronic Qualifiers: Hypothyroidism type: unspecified Qualified Code(s): E03.9 - Hypothyroidism, unspecified (9) Glaucoma: Chronically on timolol and latanoprost Status: Chronic Qualifiers: Glaucoma type: unspecified Laterality: unspecified laterality Qualified Code(s): H40.9 - Unspecified glaucoma Additional A&P Information Mild transaminase elevation Elevated baseline troponin but unremarkable 2 and 6-hour delta Given significance of injury, neurochecks, will have to keep an eye on for traumatic brain injury and concussion-like symptoms Recommend continuation of carvedilol, aspirin, levothyroxine and eyedrops Continue current pain control with Dilaudid and oxycodone, patient with little to no relief with morphine from ED report Scheduled laxatives secondary to narcotics Incentive spirometer to bedside Nebulizer treatments if needed Received tetanus shot in the emergency room Continuous pulse ox and telemetry monitoring at least for the first 24 hours Further management as per surgery recommendations I did order SCDs but will defer any pharmacological anticoagulation to surgery particularly pending repeat H&H this morning I did discuss with patient to let us know if he develops severe pain out of proportion to what he thinks she should have particularly in the right thigh area and to let us know if he has any difficulty with eye movements facial pain or breathing, monitor for compartment syndrome SCDs for DVT prophylaxis Full code Attestations Medical Necessity Statement*: Patient requires hospitalization due to trauma, multiple rib fractures, contusion, rhabdomyolysis Coding Level of Care Code 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 transplanted heart: [place] heart Associated angina: without angina Hypothyroidism E03.9 Hypothyroidism type: unspecified Glaucoma H40.9 Glaucoma type: unspecified Laterality: unspecified laterality
[2020-03-27] MEDS: neomycin-poly-bacitracin oint 28 gm 1 APPLIC TOPICAL (14:57)
[2020-03-27] MEDS: ibuprofen 800 mg tablet PO ×2 (15:42→21:11)
[2020-03-27] MEDS: oxyCODONE-APAP 5-325 mg Tablet 1 TAB PO ×2 (18:08→22:49)
[2020-03-27] MEDS: sennosides-docusate Tablet 1 TAB PO (18:08)
--- NOTE | 2020-03-27 18:36 | PC.NURSE ---
SHIFT SUMMARY PATIENT A&O X4. PATIENT HAS BEEN CALM AND COOPERATIVE THROUGHOUT SHIFT. PAIN HAS BEEN CONTROLLED WITH SCHEDULED PAIN MEDICATIONS. PATIENT WAS ABLE TO AMBULATE WITH PT AND HAS BEEN SITTING IN THE BEDSIDE CHAIR FOR SEVERAL HOURS THIS AFTERNOON. PATIENT IS HOPEFUL TO GO HOME TOMORROW.
[2020-03-27] MEDS: aspirin 81 mg EC Tablet PO (21:11)
[2020-03-28] VITALS (11 sets, daily range): BP systolic 92–132; BP diastolic 51–74; PULSE 58–68; RESP 17–19; TEMP 36.4–36.8; O2SAT 91–97
[2020-03-28] MEDS: oxyCODONE-APAP 5-325 mg Tablet 1 TAB PO ×4 (06:10→22:37)
[2020-03-28 06:48] LABS: Basophils % 0.6 %; Eosinophils # 0.1 10^3/uL (0.0-0.8); Eosinophils % 1.9 %; Hematocrit 32.1 % (42.0-52.0); Hemoglobin 10.2 g/dL (11.7-16.6); Lymphocytes # 0.7 10^3/uL (0.8-4.8); Lymphocytes % 10.6 %; Mean Corpuscular HGB Conc 31.8 g/dL (30.0-36.0); Mean Corpuscular Hemoglobin 30.4 pg (28.0-34.0); Mean Corpuscular Volume 95.8 fL (80-94); Mean Platelet Volume 11.7 fL (7.4-10.4); Monocytes # 0.6 10^3/uL (0.2-0.9); Monocytes % 9.7 %; Neutrophils # 4.98 10^3/uL (1.8-7.7); Neutrophils % 76.9 %; Nucleated Red Blood Cells % 0 %; Platelet Count 143 10^3/cmm (130-400); Red Blood Count 3.35 10^6/uL (4.1-5.3); Red Cell Distribution Width 14.1 % (12.1-15.1); White Blood Count 6.5 10^3/uL (4.0-10.0)
--- NOTE | 2020-03-28 06:50 | NUR.SHIFT ---
Patient was able to sleep through most of the night. Patient's pain is well controlled by scheduled medications. Patient is eager to be discharged.
[2020-03-28 07:09] LABS: Alanine Aminotransferase 27 U/L (0-41); Albumin Level 3.3 g/dL (3.5-5.2); Alkaline Phosphatase 64 IU/L (40-130); Aspartate Amino Transferase 47 U/L (0-40); Blood Urea Nitrogen 28 mg/dL (8-23); Calcium 8.2 mg/dL (8.5-10.5); Carbon Dioxide 22 mmol/L (22-29); Chloride 104 mmol/L (98-107); Globulin 2.4 g/dL (1.3-4.6); Glucose 89 mg/dL (65-115); Osmolality Calculated 281 mOsm/kg (285-295); Sodium 133 mmol/L (136-145); Total Bilirubin 1.2 mg/dL (0.15-1.2); Total Protein 5.7 g/dL (6.6-8.7)
--- NOTE | 2020-03-28 07:21 | PC.NURSE ---
AM NOTE NOTED PT TO HAVE MULTIPLE SCATTERED FACIAL ABRASIONS, ARM ABRASIONS AND LARGE RIGHT POSTERIOR THIGH HEMATOMA - SOFT AT PRESENT TIME - INSTRUCTED PT ON IS - VERBALIZES UNDERSTANDING - CURRENTLY USING
[2020-03-28 07:23] LABS: Creatine Phosphokinase 1949 U/L (39-308)
[2020-03-28] MEDS: ibuprofen 800 mg tablet PO ×3 (08:07→20:27)
[2020-03-28] MEDS: sennosides-docusate Tablet 1 TAB PO ×2 (08:07→16:58)
[2020-03-28] MEDS: neomycin-poly-bacitracin oint 28 gm 1 APPLIC TOPICAL ×2 (08:08→16:59)
[2020-03-28] MEDS: sodium chloride 0.9% 1,000 ML 125 ML IV ×3 (08:11→22:31)
[2020-03-28] MEDS: sodium bicarbonate 650 mg Tablet PO ×2 (09:41→16:58)
--- NOTE | 2020-03-28 11:54 | P.PN_ITS ---
Subjective Subjective: Interval history: This morning patient was examined, denies headaches, no blurry vision, no nausea, no vomiting, continues to have right thigh pain, but improving, has some pleurisy, Vitals/I&O/Wt Last Vital Signs Temp 98.0 F 03/28/20 11:53 Pulse 67 03/28/20 11:53 Resp 18 03/28/20 11:53 BP 132/65 03/28/20 11:53 Pulse Ox 95 03/28/20 11:53 03/27/20 03/28/20 03/28/20 22:59 06:59 14:59 Intake Total 2457.5 / 2797.5 1150 / 3947.5 680 / 680 Balance 2457.5 / 2397.5 1150 / 3547.5 680 / 680 Weight last 48 hrs Weight 81.647 kg Physical Exam Const: COMMON NORMALS: no acute distress and patient oriented x3 HENMT: COMMON NORMALS: normocephalic HEAD & SCALP: normocephalic Neck/C-Spine: COMMON NORMALS: no JVD Resp: COMMON NORMALS: normal respiratory effort, No retractions, No use of accessory muscles and clear to auscultation bilaterally AUSCULTATION: clear to auscultation bilaterally Cardio: COMMON NORMALS: no JVD, regular rate, regular rhythm, S1 normal heart sound present and S2 normal heart sound present RATE: regular rate RHYTHM: regular rhythm HEART SOUNDS: S1 normal heart sound present and S2 normal heart sound present GI: COMMON NORMALS: Normal to inspection, nondistended, normoactive bowel sounds present, Soft to palpation, non-tender, No hepatosplenomegaly present, no masses and no bruits PALPATION: Yes Soft to palpation and Yes No hepatosplenomegaly present Extremity: COMMON NORMALS: capillary refill normal, no clubbing, cyanosis or edema, no calf tenderness and no pedal edema Neuro: COMMON NORMALS: patient oriented x3 Psych: COMMON NORMALS: mental status grossly normal Skin: NARRATIVE SKIN EXAM: Has laceration over right brow Multiple areas of bruising on the face Multiple areas of bruising over the chest Areas of bruising over the bilateral lower extremities Particular area of bruising over the right lateral thigh, that is quite deep appearing Data : 03/28/20 04:45 03/28/20 04:45 A&P Assessment and plan (1) Struck by cow, initial encounter: Status: Acute (2) Multiple fractures of ribs: 3-8 on the right and 4-5 on the left, hemothorax was noted on the right No evidence of flail chest Pain control Incentive spirometer Monitor for fevers, monitor for pneumonias Status: Acute Qualifiers: Encounter type: initial encounter Fracture type: closed Laterality: bilateral Qualified Code(s): S22.43XA - Multiple fractures of ribs, bilateral, initial encounter for closed fracture (3) Contusion of multiple sites: Multiple facial contusions, laceration at left temporal area required suturing, laceration to right earlobe, hematoma to right posterior thigh and abrasions to left anterior read Status: Acute (4) Traumatic rhabdomyolysis: Initial CK level over 1900, creatinine 1.2 Continue IV fluids Start p.o. sodium bicarb Hold statin Hopefully can discharge if CK levels stabilize or improve Status: Acute Qualifiers: Encounter type: initial encounter Qualified Code(s): T79.6XXA - Traumatic ischemia of muscle, initial encounter (5) Hypertension: Chronically on carvedilol Status: Chronic Qualifiers: Hypertension type: essential hypertension Qualified Code(s): I10 - Essential (primary) hypertension (6) Hyperlipidemia: Chronically on Crestor Status: Chronic Qualifiers: Hyperlipidemia type: unspecified Qualified Code(s): E78.5 - Hyperlipidemia, unspecified (7) CAD (coronary artery disease): History of coronary artery bypass in 2010, takes daily aspirin Status: Chronic Qualifiers: Coronary Disease-Associated Artery/Lesion type: [place] artery [place] vs. transplanted heart: [place] heart Associated angina: without angina Qualif ied Code(s): I25.10 - Atherosclerotic heart disease of [place] coronary artery without angina pectoris (8) Hypothyroidism: Chronically on levothyroxine Status: Chronic Qualifiers: Hypothyroidism type: unspecified Qualified Code(s): E03.9 - Hypothyroidism, unspecified (9) Glaucoma: Chronically on timolol and latanoprost Status: Chronic Qualifiers: Glaucoma type: unspecified Laterality: unspecified laterality Qualified Code(s): H40.9 - Unspecified glaucoma Additional A&P Information Mild transaminase elevation Elevated baseline troponin but unremarkable 2 and 6-hour delta Given significance of injury, neurochecks, will have to keep an eye on for traumatic brain injury and concussion-like symptoms Recommend continuation of carvedilol, aspirin, levothyroxine and eyedrops Continue current pain control with Dilaudid and oxycodone, patient with little to no relief with morphine from ED report Scheduled laxatives secondary to narcotics Incentive spirometer to bedside Nebulizer treatments if needed Received tetanus shot in the emergency room Continuous pulse ox and telemetry monitoring at least for the first 24 hours Further management as per surgery recommendations SCDs for DVT prophylaxis, anticoagulation contraindicated given large right thigh hematoma and bruising I did discuss with patient to let us know if he develops severe pain out of proportion to what he thinks she should have particularly in the right thigh area and to let us know if he has any difficulty with eye movements facial pain or breathing, monitor for compartment syndrome SCDs for DVT prophylaxis Full code Attestations Medical Necessity Statement*: Patient requires hospitalization for multiple rib fractures, rhabdomyolysis Coding Level of Care Code Acute Compensation 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 transplanted heart: [place] heart Associated angina: without angina Hypothyroidism E03.9 Hypothyroidism type: unspecified Glaucoma H40.9 Glaucoma type: unspecified Laterality: unspecified laterality
--- NOTE | 2020-03-28 14:14 | PM.PN ---
Subjective Subjective: Interval history: pain is controlled, ambulating has not flatus, no BM, tolerating regular diet Vitals/I&O/Wt Last Vital Signs Temp 98.1 F 03/29/20 11:43 Pulse 64 03/29/20 11:43 Resp 16 03/29/20 11:43 BP 160/80 03/29/20 11:43 Pulse Ox 94 03/29/20 11:43 03/28/20 03/29/20 03/29/20 22:59 06:59 14:59 Intake Total 1240 / 3695 1000 / 3695 1299.583 / 1299.583 Output Total 300 / 300 900 / 900 Balance 940 / 3395 1000 / 3395 399.583 / 399.583 Physical Exam Narrative: EXAM NARRATIVE: Abdomen: Soft, patient is ambulating Data : 03/29/20 05:27 03/29/20 05:27 A&P Assessment and plan (1) Multiple fractures of ribs: 74-year-old male struck by a cow who is currently hemodynamically stable CT angiogram of neck: Nil acute Right knee x-ray: Nil acute Head CT: Frontal soft tissue swelling Femur fracture: Nil acute Face CT: Soft tissue edema in the left periorbital/maxillary area CT chest: Right 3-8 rib fracture, left 4-[address] abdomen pelvis: Nil acute Regular diet Incentive spirometry Scheduled Percocet and Motrin for pain control Ambulate with physical therapy Senna docusate for bowel regimen to avoid constipation Lovenox for DVT prophylaxis Medical management as per hospitalist service Status: Acute Qualifiers: Encounter type: initial encounter Fracture type: closed Laterality: bilateral Qualified Code(s): S22.43XA - Multiple fractures of ribs, bilateral, initial encounter for closed fracture (2) Traumatic rhabdomyolysis: Continue IV fluids at 125 cc/h, encouraged to increase oral intake I should however start MiraLAX gallbladder CPK up to 1949 from 1044 Status: Acute Qualifiers: Encounter type: initial encounter Qualified Code(s): T79.6XXA - Traumatic ischemia of muscle, initial encounter Attestations Medical Necessity Statement*: Rhabdomyolysis with increasing CPK requiring 1 more night of inpatient stay to ensure resolution Coding Level of Care Code 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
--- NOTE | 2020-03-28 16:45 | PC.NURSE ---
VOID INSTRUCTED PT TO VOID INTO URINAL FOR STAFF TO MEASURE
[2020-03-28] MEDS: cetirizine 10 mg Tablet PO (20:27)
[2020-03-28] MEDS: aspirin 81 mg EC Tablet PO (22:37)
[2020-03-29] VITALS (10 sets, daily range): BP systolic 104–160; BP diastolic 59–80; PULSE 59–69; RESP 15–18; TEMP 36.5–37.1; O2SAT 90–97
[2020-03-29 06:01] LABS: Basophils % 0.6 %; Eosinophils # 0.2 10^3/uL (0.0-0.8); Eosinophils % 3.7 %; Hematocrit 29.8 % (42.0-52.0); Hemoglobin 9.2 g/dL (11.7-16.6); Lymphocytes # 0.7 10^3/uL (0.8-4.8); Lymphocytes % 10.8 %; Mean Corpuscular HGB Conc 30.9 g/dL (30.0-36.0); Mean Corpuscular Hemoglobin 29.8 pg (28.0-34.0); Mean Corpuscular Volume 96.4 fL (80-94); Mean Platelet Volume 11.1 fL (7.4-10.4); Monocytes # 0.7 10^3/uL (0.2-0.9); Monocytes % 10.7 %; Neutrophils # 4.65 10^3/uL (1.8-7.7); Neutrophils % 73.9 %; Nucleated Red Blood Cells % 0 %; Platelet Count 130 10^3/cmm (130-400); Red Blood Count 3.09 10^6/uL (4.1-5.3); Red Cell Distribution Width 14.1 % (12.1-15.1); White Blood Count 6.3 10^3/uL (4.0-10.0)
[2020-03-29 06:22] LABS: Alanine Aminotransferase 26 U/L (0-41); Albumin Level 3.3 g/dL (3.5-5.2); Alkaline Phosphatase 47 IU/L (40-130); Anion Gap 10.1 (5-19); Aspartate Amino Transferase 50 U/L (0-40); Blood Urea Nitrogen 16 mg/dL (8-23); Calcium 8.1 mg/dL (8.5-10.5); Carbon Dioxide 22 mmol/L (22-29); Chloride 110 mmol/L (98-107); Globulin 2.2 g/dL (1.3-4.6); Glucose 83 mg/dL (65-115); Magnesium 1.7 mg/dL (1.7-2.3); Osmolality Calculated 286 mOsm/kg (285-295); Potassium 4.1 mmol/L (3.5-5.1); Sodium 138 mmol/L (136-145); Total Bilirubin 0.7 mg/dL (0.15-1.2); Total Protein 5.5 g/dL (6.6-8.7)
[2020-03-29] MEDS: oxyCODONE-APAP 5-325 mg Tablet 1 TAB PO ×4 (06:23→23:22)
[2020-03-29] MEDS: sodium chloride 0.9% 1,000 ML 125 ML IV ×3 (06:23→21:15)
[2020-03-29 06:48] LABS: Creatine Phosphokinase 2253 U/L (39-308)
[2020-03-29] MEDS: sodium bicarbonate 650 mg Tablet PO (08:33)
[2020-03-29] MEDS: cetirizine 10 mg Tablet PO (08:34)
[2020-03-29] MEDS: neomycin-poly-bacitracin oint 28 gm 1 APPLIC TOPICAL ×2 (08:34→18:15)
[2020-03-29] MEDS: sennosides-docusate Tablet 1 TAB PO ×2 (08:34→18:12)
[2020-03-29] MEDS: ibuprofen 800 mg tablet PO ×3 (08:34→21:14)
--- NOTE | 2020-03-29 10:00 | PC.CHAP ---
Pastoral Care Encounter/Spiritual Assessment Type of Contact [] Declined liquid floor and wall applier visit [] Patient/Family/Request visit [] Outpatient visit [] Follow-up visit [] Physician referral [] Code/Alert [x] Routine visit [] Staff referral [] Actively dying [] Patient sleeping [] Family support [] [] Out of room [] Palliative care [] [] Receiving care in room [] Pre-surgical visit [] Trauma [] Long length of stay [] ICU visit [] Other: Relational/Emotional Strength [x] Patient feels connected with others/family/visitors/staff [] Distress [] Loneliness/isolation [] Abandonment Spirituality of Patient [x] Person of Natalie [] Attends Nondenominational of their Natalie [] Believes in Prayer [] Reads Bible or Mosque materials [] There are Spiritual issues to be addressed Palletizer Operator Interventions [x] Prayer [] Active listening [] Non-anxious presence [] Spiritual/emotional support [] Crisis/trauma care [] Spiritual counseling [] Bereavement support [] Provided bereavement packet [] Provided Bible/devotional materials [] Provided toy/stuffed animal, coloring book to patient or family member [] Provided Communion [] Anointing/[place] [] Salvation [x] Completed spiritual assessment [] Other: Impact on Illness or Injury [] Angry [] Fearful [] Anxious [] Often cries [] Exhaustion [] Unable to work [] Unable to attend latter-day [] Unable to walk/stand [] Unable to read [] Unable to drive [] Unable to eat/drink [] Unable to sleep [] Unable to be with family [] Patient intubated [] Other: Summary patient very sore but feeling better Time spent with patient 15 min
[2020-03-29] MEDS: lactulose oral liq 20 gm/30 mL UDC 10 GM PO (10:37)
--- NOTE | 2020-03-29 13:11 | P.PN_ITS ---
Subjective Subjective: Interval history: Sivakumar reports he is little bit sore but doing okay. No other concerns currently. Medications: Reviewed: Yes Vitals/I&O/Wt Last Vital Signs Temp 98.1 F 03/29/20 11:43 Pulse 64 03/29/20 11:43 Resp 16 03/29/20 11:43 BP 160/80 03/29/20 11:43 Pulse Ox 94 03/29/20 11:43 03/28/20 03/29/20 03/29/20 22:59 06:59 14:59 Intake Total 1240 / 2695 1000 / 3695 360 / 360 Output Total 300 / 300 900 / 900 Balance 940 / 2395 1000 / 3395 -540 / -540 Physical Exam Narrative: EXAM NARRATIVE: General exam no apparent distress HEENT: Multiple facial excoriations and bruises noted Neck is supple no lymphadenopathy Cardiovascular regular in rhythm without murmur Lungs clear Abdomen is soft with positive bowel sounds Extremities no cyanosis clubbing or edema, some bruising noted left leg Data : 03/29/20 05:27 03/29/20 05:27 A&P Assessment and plan (1) Struck by cow, initial encounter: Recovering Status: Acute (2) Multiple fractures of ribs: 3-8 on the right and 4-5 on the left, hemothorax was noted on the right No evidence of flail chest Continue incentive spirometry Status: Acute Qualifiers: Encounter type: initial encounter Fracture type: closed Laterality: bilateral Qualified Code(s): S22.43XA - Multiple fractures of ribs, bilateral, initial encounter for closed fracture (3) Contusion of multiple sites: Multiple contusions and abrasions. Status: Acute (4) Traumatic rhabdomyolysis: CK with slow rise No indication for bicarb Continue IV fluids Agree with holding statin Discharge when CK improved Status: Acute Qualifiers: Encounter type: initial encounter Qualified Code(s): T79.6XXA - Traumatic ischemia of muscle, initial encounter (5) Hypertension: Continue carvedilol Status: Chronic Qualifiers: Hypertension type: essential hypertension Qualified Code(s): I10 - Essential (primary) hypertension (6) Hyperlipidemia: Restart statin when CK starts improving Status: Chronic Qualifiers: Hyperlipidemia type: unspecified Qualified Code(s): E78.5 - Hyperli pidemia, unspecified (7) CAD (coronary artery disease): History of coronary artery bypass in 2011, takes daily aspirin Status: Chronic Qualifiers: Coronary Disease-Associated Artery/Lesion type: [place] artery [place] vs. transplanted heart: [place] heart Associated angina: without angina Qualified Code(s): I25.10 - Atherosclerotic heart disease of [place] coronary artery without angina pectoris (8) Hypothyroidism: Status: Chronic Qualifiers: Hypothyroidism type: unspecified Qualified Code(s): E03.9 - Hypothyroidism, unspecified (9) Glaucoma: Chronically on timolol and latanoprost Status: Chronic Qualifiers: Glaucoma type: unspecified Laterality: unspecified laterality Qualifie d Code(s): H40.9 - Unspecified glaucoma Additional A&P Information Full code SCDs for DVT prophylaxis, anticoagulation contraindicated given large right thigh hematoma and bruising Attestations Medical Necessity Statement*: Needs continued hospitalization for close follow-up of elevated CK. 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 transplanted heart: [place] heart Associated angina: without angina Hypothyroidism E03.9 Hypothyroidism type: unspecified Glaucoma H40.9 Glaucoma type: unspecified Laterality: unspecified laterality
--- NOTE | 2020-03-29 15:15 | P.PN_ITS ---
Subjective Subjective: Interval history: No issues overnight, patient keen to go home, good urine output, pain is well controlled, ambulating Vitals/I&O/Wt Last Vital Signs Temp 98.1 F 03/29/20 11:43 Pulse 64 03/29/20 11:43 Resp 16 03/29/20 11:43 BP 160/80 03/29/20 11:43 Pulse Ox 94 03/29/20 11:43 03/29/20 03/29/20 03/29/20 06:59 14:59 22:59 Intake Total 1000 / 3695 1299.583 / 1299.583 Output Total 900 / 900 Balance 1000 / 3395 399.583 / 399.583 Physical Exam Narrative: EXAM NARRATIVE: Abdomen: Soft, nondistended, nontender Data : 03/29/20 05:27 03/29/20 05:27 A&P Assessment and plan (1) Multiple fractures of ribs: 74-year-old male struck by a cow who is currently hemodynamically stable CT angiogram of neck: Nil acute Right knee x-ray: Nil acute Head CT: Frontal soft tissue swelling Femur fracture: Nil acute Face CT: Soft tissue edema in the left periorbital/maxillary area CT chest: Right 3-8 rib fracture, left 4-[address] abdomen pelvis: Nil acute Regular diet Incentive spirometry Scheduled Percocet and Motrin for pain control Ambulate with physical therapy Senna docusate for bowel regimen to avoid constipation, added lactulose today 50 cc p.o. twice daily Lovenox for DVT prophylaxis Medical management as per hospitalist service Status: Acute Qualifiers: Encounter type: initial encounter Fracture type: closed Laterality: bilateral Qualified Code(s): S22.43XA - Multiple fractures of ribs, bilateral, initial encounter for closed fracture (2) Traumatic rhabdomyolysis: Continue IV fluids at 125 cc/h, encouraged to increase oral intake I should however start MiraLAX gallbladder CPK up to 2253 from 1949 Status: Acute Qualifiers: Encounter type: initial encounter Qualified Code(s): T79.6XXA - Traumatic ischemia of muscle, initial encounter Attestations Medical Necessity Statement*: Rhabdomyolysis with increasing CPK requiring 1 more night of inpatient stay Coding Level of Care Code Acute Room Service Bellhop for willie Malik Diagnoses Multiple fractures of ribs S22.43XA Encounter type: initial encounter Fracture type: closed Laterality: bilateral Traumatic rhabdomyolysis T79.6XXA Encounter type: initial encounter
[2020-03-29] MEDS: aspirin 81 mg EC Tablet PO (21:14)
[2020-03-30] VITALS: BP 126/72; PULSE 65; RESP 18; TEMP 37; O2SAT 93
[2020-03-30 04:00] VITALS: BP 139/76; PULSE 93; RESP 20; TEMP 36.9; O2SAT 91
[2020-03-30] MEDS: sodium chloride 0.9% 1,000 ML 125 ML IV (05:19)
[2020-03-30 05:20] VITALS: RESP 18; O2SAT 97
[2020-03-30] MEDS: oxyCODONE-APAP 5-325 mg Tablet 1 TAB PO (05:20)
[2020-03-30 07:12] LABS: Blood Urea Nitrogen 11 mg/dL (8-23); Calcium 8.5 mg/dL (8.5-10.5); Carbon Dioxide 21 mmol/L (22-29); Chloride 107 mmol/L (98-107); Glucose 79 mg/dL (65-115); Osmolality Calculated 280 mOsm/kg (285-295); Sodium 136 mmol/L (136-145)
[2020-03-30 07:18] LABS: Creatine Phosphokinase 2362 U/L (39-308)
[2020-03-30 07:54] VITALS: BP 167/85; PULSE 65; RESP 16; TEMP 36.6; O2SAT 91
--- NOTE | 2020-03-30 08:16 | PC.NURSE ---
Critical CK Notified physician of CK level of 2362 which is 109+ from last level. Dr. Shipley stated patient would be discharged today
[2020-03-30] MEDS: neomycin-poly-bacitracin oint 28 gm 1 APPLIC TOPICAL (09:04)
[2020-03-30] MEDS: cetirizine 10 mg Tablet PO (09:04)
[2020-03-30] MEDS: ibuprofen 800 mg tablet PO (09:04)
[2020-03-30] MEDS: sennosides-docusate Tablet 1 TAB PO (09:04)
--- NOTE | 2020-03-30 09:25 | PC.SOCIAL ---
IMM Update Pg.2 of IMM updated and reviewed with patient who verbalized understanding. Copy provided.
[2020-03-30 11:00] VITALS: BP 173/91; PULSE 65; RESP 16; TEMP 36.7; O2SAT 93
--- NOTE | 2020-03-30 12:57 | P.PN_ITS ---
Subjective Subjective: Interval history: Patient seen earlier today. Wanting to go home. Medications: Reviewed: Yes Vitals/I&O/Wt Last Vital Signs Temp 98.0 F 03/30/20 11:00 Pulse 65 03/30/20 11:00 Resp 16 03/30/20 11:00 BP 173/91 03/30/20 11:00 Pulse Ox 93 03/30/20 11:00 03/29/20 03/30/20 03/30/20 22:59 06:59 14:59 Intake Total 1398.75 / 2698.333 1000 / 3698.333 585.833 / 585.833 Balance 1398.75 / 0789.065 6654 / 2798.333 585.833 / 585.833 Physical Exam Narrative: EXAM NARRATIVE: General exam no apparent distress HEENT: Multiple facial excoriations and bruises noted. These are unchanged Neck is supple no lymphadenopathy Cardiovascular regular in rhythm without murmur Lungs clear Abdomen is soft with positive bowel sounds Extremities no cyanosis clubbing or edema, some bruising noted left leg Data : 03/29/20 05:27 03/30/20 05:42 A&P Assessment and plan (1) Struck by cow, initial encounter: Recovering Status: Acute (2) Multiple fractures of ribs: 3-8 on the right and 4-5 on the left, hemothorax was noted on the right No evidence of flail chest Continue incentive spirometry Status: Acute Qualifiers: Encounter type: initial encounter Fracture type: closed Laterality: bilateral Qualified Code(s): S22.43XA - Multiple fractures of ribs, bilateral, initial encounter for closed fracture (3) Contusion of multiple sites: Multiple contusions and abrasions. Status: Acute (4) Traumatic rhabdomyolysis: CK with no significant rise overnight No indication for bicarb Continue IV fluids Agree with holding statin Okay for discharge. Discussed with patient he will need to continue to hydrate well after discharge. Status: Acute Qualifiers: Encounter type: initial encounter Qualified Code(s): T79.6XXA - Traumatic ischemia of muscle, initial encounter (5) Hypertension: Continue carvedilol Status: Chronic Qualifiers: Hypertension type: essential hypertension Qualified Code(s): I10 - Es sential (primary) hypertension (6) Hyperlipidemia: Restart statin when CK starts improving Status: Chronic Qualifiers: Hyperlipidemia type: unspecified Qualified Code(s): E78.5 - Hyperlipidemia, unspecified (7) CAD (coronary artery disease): History of coronary artery bypass in 2010, takes daily aspirin Status: Chronic Qualifiers: Coronary Disease-Associated Artery/Lesion type: [place] artery [place] vs. transplanted heart: [place] heart Associated angina: without angina Qualified Code(s): I25.10 - Atherosclerotic heart disease of [place] coronary ar [place] without angina pectoris (8) Hypothyroidism: Status: Chronic Qualifiers: Hypothyroidism type: unspecified Qualified Code(s): E03.9 - Hypothy roidism, unspecified (9) Glaucoma: Chronically on timolol and latanoprost Status: Chronic Qualifiers: Glaucoma type: unspecified Laterality: unspecified laterality Qualified Code(s): H40.9 - Unspecified glaucoma Additional A&P Information Full code SCDs for DVT prophylaxis, anticoagulation contraindicated given large right thigh hematoma and bruising Attestations Medical Necessity Statement*: Not applicable Coding Level of Care Code Acute Assistant Import Manager for Chg Fwd Diagnoses Struck by cow, initial encounter W55.22XA Multiple fractures of ribs S22.43XA Encounter type: initial encounter Fracture type: closed Laterality: bilateral Contusion of multiple sites T07.XXXA Traumatic rhabdomyolysis T79.6XXA Encounter type: initial encounter Hypertension I10 Hypertension type: essential hypertension Hyperlipidemia E78.5 Hyperlipidemia type: unspecified CAD (coronary artery disease) I25.10 Coronary Disease-Associated Artery/Lesion type: [place] artery [place] vs. transplanted heart: [place] heart Associated angina: without angina Hypothyroidism E03.9 Hypothyroidism type: unspecified Glaucoma H40.9 Glaucoma type: unspecified Laterality: unspecified laterality
--- NOTE | 2020-03-30 15:48 | P.PN_ITS ---
Subjective Subjective: Interval history: Patient states pain is well controlled, keen to go home today, good urine output overnight Vitals/I&O/Wt Last Vital Signs Temp 98.0 F 03/30/20 11:00 Pulse 65 03/30/20 11:00 Resp 16 03/30/20 11:00 BP 173/91 03/30/20 11:00 Pulse Ox 93 03/30/20 11:00 03/30/20 03/30/20 03/30/20 06:59 14:59 22:59 Intake Total 1000 / 3698.333 585.833 / 585.833 Balance 1000 / 2798.333 585.833 / 585.833 Physical Exam Narrative: EXAM NARRATIVE: Abdominal: Soft Data : 03/29/20 05:27 03/30/20 05:42 A&P Assessment and plan (1) Multiple fractures of ribs: 74-year-old male struck by a cow who is currently hemodynamically stable CT angiogram of neck: Nil acute Right knee x-ray: Nil acute Head CT: Frontal soft tissue swelling Femur fracture: Nil acute Face CT: Soft tissue edema in the left periorbital/maxillary area CT chest: Right 3-8 rib fracture, left 4-[address] abdomen pelvis: Nil acute DC home today Status: Acute Qualifiers: Encounter type: initial encounter Fracture type: closed Laterality: bilateral Qualified Code(s): S22.43XA - Multiple fractures of ribs, bilateral, initial encounter for closed fracture (2) Traumatic rhabdomyolysis: Encourage oral intake of fluids, rising CPK trending down where it is safe for him to go home Status: Acute Qualifiers: Encounter type: initial encounter Qualified Code(s): T79.6XXA - Traumatic ischemia of muscle, initial encounter Attestations Medical Necessity Statement*: DC home today Coding Level of Care Code 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
--- NOTE | 2020-03-30 15:49 | P.DS_ITS ---
Discharge Providers Date of Admission: 03/27/20 00:20 Date of Discharge: March 30, 2020 Attending Provider at Admission: Que Shipley MD Attending Provider at Discharge: Que Shipley MD Primary Care Provider: Efrem Mcginnis Diagnoses at Discharge Discharge Diagnosis (1) Multiple fractures of ribs: Status: Acute Qualifiers: Encounter type: initial encounter Fracture type: closed Laterality: bilateral Qualified Code(s): S22.43XA - Multiple fractures of ribs, bilateral, initial encounter for closed fracture (2) Traumatic rhabdomyolysis: Status: Acute Qualifiers: Encounter type: initial encounter Qualified Code(s): T79.6XXA - Traumatic ischemia of muscle, initial encounter Reason for Visit Reason for Visit: PT VS COW/FACIAL INJURIES, R LEG PAIN, RIB PAIN Hospital Course Hospital Course Sivakumar Sky is a 74 year old male who presented to the ER with multiple injuries to the face, bilateral lower extremities and chest after he was struck by one of 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 Patient had facial laceration sutured in the ER and was admitted to the floor for pain control and observation. He denies any loss of consciousness, diplopia, amnesia. He complains of generalized body ache and difficulty with lifting the right shoulder where he has right chest pain. He also has pain on his right thigh where he has a large bruise as well as left leg where they are multiple abrasions on the read. He denies any shortness of breath. No blood in urine. Imaging studies showed right 3-8 and left 4-5 rib fractures By the next hospital day patient was ambulating and tolerating a regular diet. By day 3 had bowel movements. He was hydrated with normal saline due to rising creatinine which finally stabilized on the day of discharge. Discharge Data Data Completed and Pending: Completed Studies During Hospitalization Category Date Time Status CT angio headneck * [id number] Stat Cat Scan 03/26/20 21:[address] cervical spin wo con* [id number] Stat Cat Scan 03/26/20 19:[address] chest abd pel w con* Stat Cat Scan 03/26/20 19:[address] facial bones w o con* [id number] Stat Cat Scan 03/26/20 19:[address] head wo con* 7 0450 Stat Cat Scan 03/26/20 19:53 Completed XR femur RT min 2 V* [id number] Stat Exams 03/26/20 19:53 Completed XR knee RT 3V* 73 [id number] Stat Exams 03/26/20 19:53 Completed Labs from last 24 hours 03/30/20 03/30/20 05:42 05:42 Sodium 136 Potassium 4.0 Chloride 107 Carbon Dioxide 21 L Anion Gap 12.0 BUN 11 Creatinine 0.8 GFR Calculation Not Reportable Glucose 79 Calculated Osmolal ity 280 L Calcium 8.5 Creatine Kinase 2362 H* Vitals: Last Vital Signs Temp 98.0 F 03/30/20 11:00 Pulse 65 03/30/20 11:00 Resp 16 03/30/20 11:00 BP 173/91 03/30/20 11:00 Pulse Ox 93 03/30/20 11:00 Discharge Plan Discharge Patient Disposition: Home Condition: Stable Prescriptions: New Percocet 5-325 mg tablet 1 tab PO Q6H PRN (Reason: pain) Qty: 20 RF: 0 Colace 100 mg capsule 100 mg PO BID Qty: 30 RF: 0 lactulose 10 gram/15 mL solution 15 ml PO BID Qty: 237 RF: 2 ibuprofen 800 mg tablet 800 mg PO Q8H PRN (Reason: pain) Qty: 30 RF: 0 Continued latanoprost 0.005 % drops See Rx Instructions .ROUTE .COMPLEX RF: 0 aspirin 81 mg Tablet,Delayed Release (Dr/Ec) 81 mg PO DAILY@2200 RF: 0 carvedilol 3.125 mg tablet 3.125 mg PO BID@0700,0 RF: 0 levothyroxine 75 mcg tablet 75 mcg PO DAILY@0400 RF: 0 timolol maleate 0.5 % drops 1 drp ophthalmic (eye) BID@0700,2199 RF: 0 rosuvastatin 20 mg tablet 20 mg PO DAILY@2200 RF: 0 Vitamin D3 1 tab PO DAILY@0700 RF: 0 Discharge Orders: Discharge Order (Routine); Ordered 03/30/20 Ordered By: Que Shipley Referrals: Efrem Mcginnis [Primary Care Provider] - 7-10 days (Please call and schedule an appointment to be seen in 7-10 days. 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
== END 2020-03-30 11:50 | disposition home or self-care (01) | DRG 185 ==
LOC: ER 23:46 → MEDSURG 03-27 00:20
PROVIDERS: Family Medicine; Hospitalist; Internal Medicine; Admitting Provider Surgery; Emergency Provider Family Medicine; PCP Physician Assistant Medical; Visit Provider Surgery
DX: S22.43XA Multiple fractures of ribs, bilateral, initial encounter for closed fracture (principal); W55.22XA Struck by cow, initial encounter; T07.XXXA Unspecified multiple injuries, initial encounter; T79.6XXA Traumatic ischemia of muscle, initial encounter; I10 Essential (primary) hypertension; E78.5 Hyperlipidemia, unspecified; H40.9 Unspecified glaucoma; E03.9 Hypothyroidism, unspecified; I25.10 Atherosclerotic heart disease of native coronary artery without angina pectoris; Z79.82 Long term (current) use of aspirin; E55.9 Vitamin D deficiency, unspecified; Z95.1 Presence of aortocoronary bypass graft; Z87.891 Personal history of nicotine dependence
CPT/HCPCS: 12014; 36415; 70450; 70486; 70496; 70498; 71260; 72125; 73552; 73562; 74177; 80048; 80053; 81001; 82550; 83605; 83735; 84100; 84484; 85025; 85610; 90471; 90715; 93005; 96361; 96374; 96375; 97161; 97530; 99285; J1170; J2270; J7030; Q9967

== ENCOUNTER → 2020-05-14 12:25 | Outpatient (BNVA) | payer MEDICARE, OTHER, SELFPAY | PROVIDERS: PCP Physician Assistant Medical; Visit Provider Surgery | DX: L98.9 Disorder of the skin and subcutaneous tissue, unspecified (principal); L81.9 Disorder of pigmentation, unspecified | CPT/HCPCS: 88304 ==